=== PATIENT | female | born 1955 | race Caucasian/White ===

== ENCOUNTER 2024-12-08 10:28 | Outpatient (AMB) | payer MEDICARE, SELFPAY ==
--- NOTE | 2024-12-08 10:50 | A.OFFVIS_ITS ---
Vital Signs 12/08/24 10:51 Height 5 ft 3 in Weight 147 lb BMI 26.0 BP 118/72 Respiration 15 Pulse 70 Intake Visit Reasons: Gastroesophageal reflux disease (GERD) Allergies Sulfa (Sulfonamide Antibiotics) Allergy (Unknown, Verified 12/08/24 10:53) rash HPI HPI Gastroesophageal reflux disease (GERD): Details: 69-year-old female here for initial evaluation of GERD. She is referred from [facility] in [facility]. PMX Allergic rhinitis High cholesterol Depression GERD History of breast cancer Osteoarthritis of the knees Rosacea Raynaud's syndrome Rosacea PVD * SURGICAL HISTORY Colonoscopy-2014, 2008, 2020=polyps Breast biopsy Tonsillectomy Septoplasty Esophagogastroduodenoscopy -2011 * ALLERGIES Sulfa * [employer] LABS: None recent including [facility] website TODAY'S VISIT [facility] Medical History Hernia Hyperlipidemia Surgical History H/O esophagogastroduodenoscopy H/O nasal septoplasty Hx of tonsillectomy H/O breast biopsy H/O colonoscopy Family History (Updated 12/08/24 @ 11:01 by Eun Borges CMA) Mother Heart disease Diabetes Mother HTN (hypertension) Father Colon cancer Social History (Updated 12/08/24 @ 11:02 by Eun Borges CMA) Housing: House Alcohol intake: current Alcohol intake frequency: holidays/special occasions only Patient Tobacco Use Status: Never used Tobacco Current occupational status: retired Sexual orientation: Straight/Heterosexual Gender identity: Female Review of Systems Const Denies fatigue, Denies fever(s), Denies night sweats, Denies poor appetite and Reports weight loss (Intentional dieting) ENT Reports Normal hearing present, Denies dental pain, Denies dysphagia, Denies hearing loss, Denies mouth pain, Denies odynophagia, Denies throat swelling, Denies tongue swelling and Reports other (Dentition adequate) Card Reports chest pain Resp Reports no additional complaints GI Details: Reports abdominal pain, Denies melena, Denies bloating, Denies hematochezia, Denies constipation, Denies GI cramping, Denies dysphagia, Denies excessive flatus, Denies early satiety, Reports heartburn, Denies diarrhea, Denies nausea, Denies odynophagia, Denies vomiting and Denies hematemesis Skin/Breast Denies pruritus, Denies lesions, Denies rash and Denies jaundice Neuro Reports Normal hearing present and Denies Abnormal speech present Endo Denies fatigue Aller/Immun Denies throat swelling and Denies tongue swelling Physical Exam Vital Signs: Last Vital Signs Pulse 70 12/08/24 10:51 Resp 15 12/08/24 10:51 BP 118/72 12/08/24 10:51 BMI result Body Mass Index 26.0 Const General: cooperative, no acute distress, well developed and well groomed Nutritional Appearance: average body habitus and well nourished Orientation/consciousness: oriented to person, oriented to place and oriented to time Limitations: No language barrier HEENT Head: Yes normocephalic and Yes atraumatic Eyes General: appearance normal, both eyes and all related structures Pupils: Equal, round and reactive pupils present Neck Neck: Yes normal visual inspection and Yes no lymphadenopathy Thyroid: Thyroid normal Resp Effort & Inspection: normal respiratory effort and able to speak in complete sentences Auscultation: clear to auscultation bilaterally Cardio Rate: regular rate Rhythm: regular rhythm Heart sounds: Normal, physiologic split S2 sound present Peripheral pulses: radial pulses present and posterior tibial pulses present GI Inspection: No distended and No Abdominal panniculus present Palpation (GI): Soft to palpation, nontender, no guarding, not rigid and No hepatosplenomegaly present Percussion: Yes normal to percussion Auscultation: normal bowel sounds Rectal Exam - Female: deferred Skin General skin exam: no rashes or lesions noted, turgor normal, skin not dry, no jaundice, No spider nevi and no striae Rashes: no rashes Nails: normal Neuro General: oriented to person, oriented to place and oriented to time Cranial nerves: Yes Equal, round and reactive pupils present and Yes Normal hearing present Speech: No Abnormal speech present Extrem General: Yes normal to inspection, No clubbing, No cyanosis and No edema Psych Appearance: grossly normal and well kempt Mental Status: mental status grossly normal Speech and movement: Normal speech and movement present Affect: normal affect Attitude: cooperative Thought process: Normal thought process present and not confabulating Thought content: Normal thought content present Insight: Good insight present (Psych) Judgement: Good judgement present (Psych) Assessment & Plan Assessment & Plan (1) Pre-op examination: Code(s): Z01.818 - Encounter for other preprocedural examination Category: Medical (2) Abdominal pain: Code(s): R10.9 - Unspecified abdominal pain Category: Medical (3) Chest pain: Code(s): R07.9 - Chest pain, unspecified Category: Medical Plan - The patient is a 69-year-old female presenting with gastric abdominal burning and occasional burning in the chest consistent with heartburn. She has had prior colonoscopies and EGDs at . Her bowel movements are normal with neither constipation nor diarrhea. She denies any nausea or vomiting and her appetite is generally good. - these symptoms have persisted for four years with ineffective management; initial regimen of daily omeprazole was increased to twice daily for nocturnal pain but this never affected the pain 1 where the other. She ceased two months ago due to ineffectiveness. - Patient experiences reliable nocturnal waking due to burning sensations starting in the stomach and rising into the chest. - Upper endoscopy in 2020 demonstrated no significant findings; H. pylori test status is unclear, as I can not access the biopsy report or procedure report from [facility] - A weight loss regimen, including dietary modification, has helped with bloating but not any other GI symptoms. She has been following weight watchers and has lost about 26 lb to date. - Reports a familial history of abdominal cancer of unknown origin in her father. Apparently this was sent to a conference because this widespread abdominal cancer with so mysterious and they never were given a specific di agnosis. I suggest we start by getting some basic labs including a thyroid. She has not had many imaging studies but we will get an amylase and lipase to check her pancreatic function and see if if there is any preliminary evidence to suspect pancreatitis. I think an H pylori breath test is easy enough to obtain so we will get that today. I suggest we start by looking it is things that other providers have not looked at, so will get an ultrasound to see if there is any gallstones or gallbladder pathology along with a barium swallow to assess the significance of her reported hiatal hernia. I explained that is very difficult to assess the size of it and functional hernia with an endoscopy since your looking at it from the inside of the esophagus. For now, we are not going to start any new medications but I could consider Pepcid going forward for intermediate relief of the chest burning. Because females can also present with atypical cardiac presentation, I suggest we get an EKG while I do not think she has any acute coronary syndrome I think it would be a good idea to rule out any severe cardiac arrhythmias that could be contributing to her nocturnal abdominal pain. Going forward we may consider CAT scan particularly since her father had some sort of a undetermined abdominal cancer. This also would help us if we suspected anything like sclerosing mesenteritis or other unusual pathologies. Return office visit in 4 weeks Orders: Orders Complete Blood Count Auto Diff Today R10.9 - Unspecified abdominal pain TSH reflex Free T4 Today R10.9 - Unspecified abdominal pain Comprehensive Met. Panel Today R10.9 - Unspecified abdominal pain Amylase Today R10.9 - Unspecified abdominal pain Lipase Today R10.9 - Unspecified abdominal pain H Pylori Breath Test Today R10.9 - Unspecified abdominal pain FL barium swallow Today R10.9 - Unspecified abdominal pain US abdomen complete Today R10.9 - Unspecified abdominal pain ECG 12 lead EKG Today R07.9 - Chest pain, unspecified Coding Level of Care Code New Pt Level 3 (29811) Diagnoses Pre-op examination Z01.818 Abdominal pain R10.9 Chest pain R07.9
--- NOTE | 2024-12-08 10:50 | MHC.OFFVIS ---
Vital Signs 12/08/24 10:51 Height 5 ft 3 in Weight 147 lb BMI 26.0 BP 118/72 Respiration 15 Pulse 70 Intake Visit Reasons: Gastroesophageal reflux disease (GERD) Intake Note: c/o of stomach burning sensation Refrigeration Manager Required: No Information Interpreted: non-clinical & clinical Accompanied by: Self / Same As Patient Allergies Sulfa (Sulfonamide Antibiotics) Allergy (Unknown, Verified 12/08/24 10:53) rash Post menopausal: Yes PFSH Medical History Hernia Hyperlipidemia Surgical History H/O esophagogastroduodenoscopy H/O nasal septoplasty Hx of tonsillectomy H/O breast biopsy H/O colonoscopy Family History (Updated 12/08/24 @ 11:01 by Eun Borges CMA) Mother Heart disease Diabetes Mother HTN (hypertension) Father Colon cancer Social History (Updated 12/08/24 @ 11:02 by Eun Borges CMA) Housing: House Alcohol intake: current Alcohol intake frequency: holidays/special occasions only Patient Tobacco Use Status: Never used Tobacco Current occupational status: retired Sexual orientation: Straight/Heterosexual Gender identity: Female Coding
[2024-12-08 10:51] VITALS: BP 118/72; PULSE 70; RESP 15; BMI 26.0
--- OUTSIDE RECORDS SUMMARY | 2024-12-08 11:10 | XMS_ITS | Patient Health Record ---
[facility] Address [address] [place] [address] Care Team Providers Care Seed Production Field Supervisor Name Role Phone Crispin Cody MD Primary Care Provider Unavailab Og Wilson Unavailable [phone] Allergies Allergen (clinical drug ingredient) Drug/Non Drug Allergy documented on EMR Reaction Allergy Type Onset Date Status sulfa Unknown Drug Allergy Active Reason For Referral No Information Medications Medication SIG (Take, Route, Fr equency, Duration) Notes Start Date End Date Status Crestor 10 MG Orally; Duration: 30 day(s) Active Fexofenadine HCl 60 MG Orally; Duration: 30 day(s) Active Vitamin D 200 units Orally Active centrum silver Activ e Ritalin Orally Active CeleBREX Orally; Duration: 30 day(s) Active Viibryd Orally; Duration: 7 day(s) Active Problems Problem Type SNOMED Code ICD Code Onset Dates Problem Status W/U Status Risk Notes Problem Hammer toe (990626169) Hammer toe (735.4) Active confirmed Problem Pain in Limb (729.5) Active confirmed Plan Of Treatment No Information Insurance Providers Payer Name Payer Address Payer Phone Subscriber Number Group Number Insured Name Patient Relationship to Insured Coverage Start Date Coverage End Date [facility] All Others [address] [place] [address] [phone] [id number] Kaitlin Hodge Self - patient is the insured Medical (General) History Medical History History ICD Code Anxiety Back,Hip,and Knee pain Chicken pox Measles Mumps Hiatal hernia Cholesterol Surgical History Surgery Date(Month/Year) tonsillectomy
--- OUTSIDE RECORDS SUMMARY | 2024-12-08 11:10 | XMS_ITS | Clinical Summary ---
Author Organization [facility] Address [address] [place] [address] Care Team Providers Care Junk Removal Specialist Name Role Phone Unavailable Primary Care Provider Unavailabl e Allergies Active Allergy Reactions Criticality Noted Date Comments Environmental 06/15/2010 Sulfa Antibiotics 06/15/2010 Medications Fluvastatin Sodium (LESCOL XL) 80 MG OR TB24 1 TABLET DAILY Active Fexofenadine HCl 60 MG OR TABS 1 TABLET TWICE DAILY Active Sertraline HCl 50 MG OR TABS 1 TABLET DAILY Active Cholecalciferol (VITAMIN D) 400 UNIT OR CAPS 1 CAPSULE DAILY Active Viibryd 20 MG Tab Take 1 tablet by mouth 1 (one) time each day 11/18/2020 Active Rosuvastatin Calcium (CRESTOR) 10 MG tablet Take 10 mg by mouth 1 (one) time each day 10/05/2020 Active Omeprazole (PriLOSEC) [address] capsule Take 20 mg by mouth 09/18/2020 Active Active Problems No known active problems Social History Tobacco Use Types Packs/Day Years Used Date Smoking Tobacco: Never Smokeless Tobacco: Never Alcohol Use Standard Drinks/Week Comments Not Asked 0 (1 standard drink = 0.6 oz pur e alcohol) Intimate Partner Violence Answer Date R ecorded Fear of Current or Ex-Partner Not on file Emotionally Abused Not on file 12/13/2022 Physically Abused Not on file 12/13/2022 Sexually Abused Not on file 12/13/2022 Feel Safe at Home Not on file 12/13/2022 Comments Unknown Sex and Gender Information Value Date Recorded Sex Assigned at Not on file Legal Sex Female 1:32 AM EDT Gender Identity Not on file Sexual Orientation Not on file Plan of Treatment Upcoming Encounters Date Type Department Care Team (Late st Contact Info) Description 05/31/2025 1:50 PM EST Office Visit [facility] [address] [place] [phone] Josue Nye, OD [address] [place] [address] est pt exam nodm nocl aodv aoir Health Maintenance Due Date Last Done Comments Hepatitis C Screening 1955 DTaP/Tdap/Td (1 - Tdap) 1971 Mammogram/Breast Imaging 1993 Colon Cancer Screening 1998 Pneumococcal 50+ years (1 of 1 - PCV) 2003 Zoster (Shingrix) (1 of 2) 2003 Bone Density 2018 COVID-19 Vaccine ( season) 2023 10/15/2023, 12/29/2022, 07/18/2021, Additional history exists Influenza (#1) 2024 12/29/2022, 01/10, 02/10/2021, Additional history exists RSV (1 - 1-dose 75+ series) 02/12/2028 Eye/Retina Exam Discontinued 05/29/2024, 05/13, 05/29/2024, Additional history exists HPV Vaccine (No Doses Required) Completed Hep A Aged Out No longer eligi ble based on patient's age to complete this topic Hep B Aged Out No longer eligi ble based on patient's age to complete this topic Hib Aged Out No longer eligi ble based on patient's age to complete this topic Meningococcal ACWY Aged Out No longer eligible based on patient's age to complete this topic Pap Smear Discontinued Zoster (Zostavax) Discontinued Insurance [employer] FFS MEDICARE ADVANTAGE PPO PLAN [place]YEMED ACCESS
--- OUTSIDE RECORDS SUMMARY | 2024-12-08 11:10 | XMS_ITS | Encounter Summary ---
Author Organization [facility] Address [address] [place] [address] Care Team Providers Care City Planning Engineer Name Role Phone Unavailable Primary Care Provider Unavailabl e Encounter Details Date Type Department Care Team (Late st Contact Info) Description 06/15/2010 Orders Only [facility] [address] [place] [address] Wade Ragsdale OD Social History Tobacco Use Types Packs/Day Years Used Date Smoking Tobacco: Never Alcohol Use Standard Drinks/Week Comments Not Asked 0 (1 standard drink = 0.6 oz pur e alcohol) Comments Unknown Sex and Gender Information Value Date Recorded Sex Assigned at Not on file Legal Sex Female 1:32 AM EDT Gender Identity Not on file Sexual Orientation Not on file documented as of this encounter Plan of Treatment Upcoming Encounters Date Type Department Care Team (Late st Contact Info) Description 05/31/2025 1:50 PM EST Office Visit [facility] [address] [place] [phone] Josue Nye OD [address] [place] [address] est pt exam nodm nocl aodv aoir documented as of this encounter Visit Diagnoses Not on filedocumented in this encounter
== END 2024-12-08 11:59 | disposition home or self-care (01) ==
LOC: HO.HGI 10:29
PROVIDERS: PCP Hospitalist; Visit Provider Nurse Practitioner
DX: R10.9 Unspecified abdominal pain (principal); R07.9 Chest pain, unspecified
CPT/HCPCS: 99203

== ENCOUNTER → 2024-12-08 10:28 | Outpatient (REF) | payer MEDICARE, SELFPAY ==
--- NOTE | 2024-12-08 12:11 | ECG_ITS ---
Test Reason : r07.9 Blood Pressure : */* mmHG Vent. Rate : 55 BPM Atrial Rate : 55 BPM P-R Int : 198 ms QRS Dur : 88 ms QT Int : 416 ms P-R-T Axes : 50 16 45 degrees QTcB Int : 397 ms Sinus bradycardia Otherwise normal ECG No previous ECGs available Referred By: Lucrecia Hermosillo Electronically Signed By: REGINALD PEREA
[2024-12-08 12:19] LABS: MANUAL DIFF FLAG NO
--- OUTSIDE RECORDS SUMMARY | 2024-12-08 12:53 | XMS_ITS | Clinical Summary ---
Author Organization [facility] Address [address] [place] [address] Care Team Providers Care Stull Hewer Name Role Phone Monse Garay NP Primary Care Provider [phone] Allergies Active Allergy Reactions Criticality Noted Date Comments Hay Fever And Allergy Relief 011 Sulfa (Sulfonamide Antibiotics) 09/2010 Medications rosuvastatin (CRESTOR) 10 MG tablet TAKE 1 TABLET BY MOUTH EVERY DAY 3 9 Active VIIBRYD 40 mg tab TAKE 1 TABLET BY MOUTH EVERY DAY DIRECTED 1 9 Active vilazodone (Viibryd) 20 mg tab Take 1 tablet by mouth. 1 Active vilazodone 10 mg tab Take 20 mg by mouth. 2 Active rosuvastatin (CRESTOR) 10 MG tablet Take 1 tablet by mouth. 1 Active omeprazole (PriLOSEC) 20 MG capsule Take 20 mg by mouth. 1 Active omeprazole (PriLOSEC) 20 MG capsule TAKE 1 CAPSULE BY MOUTH EVERY DAY 2 Active fluvastatin XL (Lescol XL) 80 mg 24 hr tablet Take by mouth. Active cholecalciferol , vitamin D3, 10 mcg (400 unit) cap Take by mouth. Activ e cetirizine (ZyrTEC) 10 MG tablet Take 10 mg by mouth. 9 Active biotin 5 mg cap 0 Refills, Maintenance, 09/16/20 14:44:00 EDT, Partial fill upon patient request if the prescription is for a schedule II opioid drug. 1 Active cholecalciferol , vitamin D3, (Vitamin D3) 10 mcg (400 unit) cap Take by mouth. 2 Active uohkrxye-plv-LM -lycopen-lutein (Centrum Silver) 0.4 mg-300 mcg- 250 mcg tab Take by mouth. 4 Active rosuvastatin (CRESTOR) 20 MG tablet TAKE 1 TABLET BY MOUTH EVERY DAY 3 Active rosuvastatin (CRESTOR) 20 MG tablet Take 1 tablet (20 mg total) by mouth 3 Active azithromycin (ZITHROMAX) 500 MG tablet Take 2 tablets (1,000mg total) by mouth daily for 1 day. If symptoms not improved after 24 hours after first dose, take 1 tablet (500mg) by mouth daily for additional 2 days. 4 tablet 4 Active Immunizations Name Administration Dates Next Due Typhim Vi Single-dose Syringe 10/19/2023 Social History Tobacco Use Types Packs/Day Years Used Date Smoking Tobacco: Never Smokeless Tobacco: Never PHQ-2 Answer Date Recorded PHQ-2 Score Patient declined 10/19/2023 Comments No Sex and Gender Information Value Date Recorded Sex Assigned at Not on file Legal Sex Female 11:03 AM EST Gender Identity Not on file Sexual Orientation Not on file Last Filed Vital Signs Vital Sign Reading Time Taken Comments Blood Pressure 120/82 10/19/2023 10:10 AM EDT Pulse 83 04/15/2023 10:04 AM EST Temperature 36.4 C (97.5 F) 04/15/2023 10:04 AM EST Respiratory Rate 17 04/15/2023 10:04 AM EST Oxygen Saturation 98% 04/15/2023 10:04 AM EST Inhaled Oxygen Concentration - - Weight - - Height - - Body Mass Index - - Plan of Treatment Health Maintenance Due Date Last Done Comments Colorectal Cancer: COLONOSCO PY Screening every 10 yrs (or Modifier) 1953 Depression: Screening Annual ly using PHQ-2/9 in Adults 18 yrs or above (or HM Modifier)([facility]) 1971 Hepatitis C Virus Infection in Adolescents and Adults: Screening (or Modifier) ([facility]) 1971 YANETH Screening: Once using ST OP-BANG Questionnaire for Adults with Conditions or high BMI([facility]) 1971 SDOH Screening Reminder: Shayy gambino for all adults ([facility]) 1971 Tobacco Smoking Cessation: i n Adults excluding Women: Behavioral and Pharmacotherapy Interventions ([facility]) 1971 DTaP/Tdap/Td Vaccines ([facility]) (1 - Tdap) 02/12/1972 Colorectal Cancer Screening 45 -75 Yrs (or HM Modifier) 1998 Colorectal Cancer: FLEXIBLE SIGMOIDOSCOPY Screening every 5 yrs 1998 Colorectal Cancer: Fecal Immunochemical Test (FIT) Annually [facility] 1998 Colorectal Cancer: High-sens itivity gFOBT Screening Annually [facility] 1998 Colorectal Cancer: Stool Col oguard Screening every 3 yrs 1998 Colorectal Cancer:CT Colonog florentino Screening every 5 yrs 1998 Breast Cancer: Screening Shayy ually age 50-74 yrs (or HM Modifier)([facility]) 2003 Osteoporosis Screening to Pr event Fractures: Women aged 65 years+ ([facility]) 2018 Flu Vaccination: Ages 65+: Y early High Dose Recommended (or Modifier)([facility]) 11/10/2024 Pneumococcal Vaccination Scr eening: Patients 50+ yrs of age ([facility]) Completed 01/06/2020, 10/31/2018 Zoster/Shingles Vaccine Seri es Screening: Adults aged 18+ yrs (or HM Modifiers)([facility]) Completed 11/12/2020, 08/26/2020, 07/09/2014 RSV Vaccines Completed 04/08/2023 Medical Devices Not on file Care Teams Stull Hewer Relationship Specialty Start Date End Date Monse Garay NP [address] [place] [id number] PCP - General Family Medicine 10/19/23
[2024-12-08 14:24] LABS: Hematocrit 46.6 % (37.0-47.0); Hemoglobin 15.2 g/dl (12.0-16.0); Imm Gran Abs Auto 0.04 X10*3/uL (0.00-0.03); Imm Gran Pct Auto 0.7 % (0.0-0.4); Lymphocytes Absolute Auto 1.7 X10*3/uL (1.2-4.9); Mean Corpuscular HGB Conc 32.6 g/dl (31.0-35.0); Mean Corpuscular Hemoglobin 28.7 pg (27.0-33.0); Mean Corpuscular Volume 87.9 fL (80.0-98.0); NRBC Abs Auto 0.000 X10*3/uL (0.0-0.012); NRBC Pct Auto 0.0 /100WBC (0.0-0.2); Platelet Count 256 X10*3/uL (160-400); Red Blood Count 5.30 X10*6/uL (4.20-5.50); White Blood Count 5.9 X10*3/uL (4.8-10.8)
[2024-12-08 15:13] LABS: Alanine Aminotransferase 45 U/L (0-31); Albumin Level 4.8 g/dL (3.5-5.0); Alkaline Phosphatase 76 U/L (39-117); Amylase 72 U/L (28-100); Anion Gap 11 (12-20); Aspartate Amino Transferase 27 U/L (5-31); Blood Urea Nitrogen 13 mg/dL (9-16); Calcium 9.3 mg/dL (8.4-10.2); Carbon Dioxide 27 mmol/L (22-29); Chloride 108 mmol/L (96-108); Estimated Glomerular Filt Rate > 60; Lipase 36 U/L (8-78); Potassium 4.1 mmol/L (3.3-5.1); Sodium 142 mmol/L (135-145); Total Protein 7.1 g/dL (6.5-8.0)
== END ==
LOC: HO.CARD 10:28
PROVIDERS: PCP Hospitalist; Visit Provider Nurse Practitioner
DX: R10.9 Unspecified abdominal pain (principal); R07.9 Chest pain, unspecified; Z01.818 Encounter for other preprocedural examination
CPT/HCPCS: 36415; 80053; 82150; 83690; 84443; 85025; 93005; 99202

== ENCOUNTER → 2024-12-08 12:11 | Outpatient (BNV) | payer MEDICARE, SELFPAY | PROVIDERS: PCP Hospitalist; Visit Provider Internal Medicine | DX: R00.1 Bradycardia, unspecified (principal) | CPT/HCPCS: 93010 ==

== ENCOUNTER 2024-12-08 18:26 | Outpatient (REF) | payer MEDICARE, SELFPAY | END 2024-12-08 18:27 | disposition home or self-care (01) | LOC: HO.LNP 18:26 | PROVIDERS: Visit Provider Nurse Practitioner | DX: R10.9 Unspecified abdominal pain (principal) | CPT/HCPCS: 83013 ==

== ENCOUNTER 2025-01-09 14:19 | Outpatient (AMB) | payer MEDICARE, SELFPAY ==
[2025-01-09 14:22] VITALS: BP 98/69; PULSE 71; BMI 26.6
--- NOTE | 2025-01-09 14:22 | MHC.OFFVIS ---
Vital Signs 01/09/25 14:22 Height 5 ft 3 in Weight 150 lb BMI 26.6 BP 98/69 Blood Pressure Location Lt brachial Position Sitting Pulse 71 Intake Visit Reasons: 4 weeks CP, abd pain Intake Note: Kaitlin presents to in office follow up of abd pain. CC: Patient states that her stomach has calmed down but she does have some acid reflux periodically. Chicken And Fish Cleaner Required: No Accompanied by: Self / Same As Patient Allergies Sulfa (Sulfonamide Antibiotics) Allergy (Unknown, Verified 01/09/25 14:40) rash HPI HPI 4 weeks CP, abd pain: Details: Assessment & Plan (1) Pre-op examination: Code(s): Z01.818 - Encounter for other preprocedural examination Category: Medical (2) Abdominal pain: Code(s): R10.9 - Unspecified abdominal pain Category: Medical (3) Chest pain: Code(s): R07.9 - Chest pain, unspecified Category: Medical Plan - The patient is a 69-year-old female presenting with gastric abdominal burning and occasional burning in the chest consistent with heartburn. She has had prior colonoscopies and EGDs at [facility]. Her bowel movements are normal with neither constipation nor diarrhea. She denies any nausea or vomiting and her appetite is generally good. - these symptoms have persisted for four years with ineffective management; initial regimen of daily omeprazole was increased to twice daily for nocturnal pain but this never affected the pain 1 where the other. She ceased two months ago due to ineffectiveness. - Patient experiences reliable nocturnal waking due to burning sensations starting in the stomach and rising into the chest. - Upper endoscopy in 2020 demonstrated no significant findings; H. pylori test status is unclear, as I can not access the biopsy report or procedure report from [facility] - A weight loss regimen, including dietary modification, has helped with bloating but not any other GI symptoms. She has been following weight watchers and has lost about 26 lb to date. - Reports a familial history of abdominal cancer of unknown origin in her father. Apparently this was sent to a conference because this widespread abdominal cancer with so mysterious and they never were given a specific diagnosis. I suggest we start by getting some basic labs including a thyroid. She has not had many imaging studies but we will get an amylase and lipase to check her pancreatic function and see if if there is any preliminary evidence to suspect pancreatitis. I think an H pylori breath test is easy enough to obtain so we will get that today. I suggest we start by looking it is things that other providers have not looked at, so will get an ultrasound to see if there is any gallstones or gallbladder pathology along with a barium swallow to assess the significance of her reported hiatal hernia. I explained that is very difficult to assess the size of it and functional hernia with an endoscopy since your looking at it from the inside of the esophagus. For now, we are not going to start any new medications but I could consider Pepcid going forward for intermediate relief of the chest burning. Because females can also present with atypical cardiac presentation, I suggest we get an EKG while I do not think she has any acute coronary syndrome I think it would be a good idea to rule out any severe cardiac arrhythmias that could be contributing to her nocturnal abdominal pain. Going forward we may consider CAT scan particularly since her father had some sort of a undetermined abdominal cancer. This also would help us if we suspected anything like sclerosing mesenteritis or other unusual pathologies. Return office visit in 4 weeks Orders: Orders Complete Blood Count Auto Diff Today R10.9 - Unspecified abdominal pain TSH reflex Free T4 Today R10.9 - Unspecified abdominal pain Comprehensive Met. Panel Today R10.9 - Unspecified abdominal pain Amylase Today R10.9 - Unspecified abdominal pain Lipase Today R10.9 - Unspecified abdominal pain H Pylori Breath Test Today R10.9 - Unspecified abdominal pain FL barium swallow Today R10.9 - Unspecified abdominal pain US abdomen complete Today R10.9 - Unspecified abdominal pain ECG 12 lead EKG Today R07.9 - Chest pain, unspecified Assessment & Plan (1) Pre-op examination: Code(s): Z01.818 - Encounter for other preprocedural examination Category: Medical (2) Abdominal pain: Code(s): R10.9 - Unspecified abdominal pain Category: Medical (3) Chest pain: Code(s): R07.9 - Chest pain, unspecified Category: Medical Plan - The patient is a 69-year-old female presenting with gastric abdominal burning and occasional burning in the chest consistent with heartburn. She has had prior colonoscopies and EGDs at [facility]. Her bowel movements are normal with neither constipation nor diarrhea. She denies any nausea or vomiting and her appetite is generally good. - these symptoms have persisted for four years with ineffective management; initial regimen of daily omeprazole was increased to twice daily for nocturnal pain but this never affected the pain 1 where the other. She ceased two months ago due to ineffectiveness. - Patient experiences reliable nocturnal waking due to burning sensations starting in the stomach and rising into the chest. - Upper endoscopy in 2020 demonstrated no significant findings; H. pylori test status is unclear, as I can not access the biopsy report or procedure report from [facility] - A weight loss regimen, including dietary modification, has helped with bloating but not any other GI symptoms. She has been following weight watchers and has lost about 26 lb to date. - Reports a familial history of abdominal cancer of unknown origin in her father. Apparently this was sent to a conference because this widespread abdominal cancer with so mysterious and they never were given a specific diagnosis. I suggest we start by getting some basic labs including a thyroid. She has not had many imaging studies but we will get an amylase and lipase to check her pancreatic function and see if if there is any preliminary evidence to suspect pancreatitis. I think an H pylori breath test is easy enough to obtain so we will get that today. I suggest we start by looking it is things that other providers have not looked at, so will get an ultrasound to see if there is any gallstones or gallbladder pathology along with a barium swallow to assess the significance of her reported hiatal hernia. I explained that is very difficult to assess the size of it and functional hernia with an endoscopy since your looking at it from the inside of the esophagus. For now, we are not going to start any new medications but I could consider Pepcid going forward for intermediate relief of the chest burning. Because females can also present with atypical cardiac presentation, I suggest we get an EKG while I do not think she has any acute coronary syndrome I think it would be a good idea to rule out any severe cardiac arrhythmias that could be contributing to her nocturnal abdominal pain. Going forward we may consider CAT scan particularly since her father had some sort of a undetermined abdominal cancer. This also would help us if we suspected anything like sclerosing mesenteritis or other unusual pathologies. Return office visit in 4 weeks Orders: Orders Complete Blood Count Auto Diff Today R10.9 - Unspecified abdominal pain TSH reflex Free T4 Today R10.9 - Unspecified abdominal pain Comprehensive Met. Panel Today R10.9 - Unspecified abdominal pain Amylase Today R10.9 - Unspecified abdominal pain Lipase Today R10.9 - Unspecified abdominal pain H Pylori Breath Test Today R10.9 - Unspecified abdominal pain FL barium swallow Today R10.9 - Unspecified abdominal pain US abdomen complete Today R10.9 - Unspecified abdominal pain ECG 12 lead EKG Today R07.9 - Chest pain, unspecified LABS: Laboratory Tests 12/08/24 12/08/24 11:53 12:18 WBC 5.9 Hgb 15.2 Hct 46.6 Plt Count 256 Estimated GFR > 60 Total Bilirubin 0.4 AST 27 ALT 45 H Alkaline Phosphatase 76 Amylase 72 Lipase 36 TSH 1.15 H. pylori Breath Test Negative EKG Vent. Rate : 55 BPM Atrial Rate : 55 BPM P-R Int : 198 ms QRS Dur : 88 ms QT Int : 416 ms P-R-T Axes : 50 16 45 degrees QTcB Int : 397 ms Sinus bradycardia Otherwise normal ECG ULTRASOUND OF THE ABDOMEN BARIUM SWALLOW 04/16/2025 TODAY'S VISIT [facility] Medical History Hernia Hyperlipidemia Surgical History H/O esophagogastroduodenoscopy H/O nasal septoplasty Hx of tonsillectomy H/O breast biopsy H/O colonoscopy Family History Mother Heart disease Diabetes Mother HTN (hypertension) Father Colon cancer Social History Housing: House Alcohol intake: current Alcohol intake frequency: holidays/special occasions only Patient Tobacco Use Status: Never used Tobacco Current occupational status: retired Sexual orientation: Straight/Heterosexual Gender identity: Female Review of Systems Const Denies fatigue, Denies fever(s), Denies night sweats, Denies poor appetite and Denies weight loss Eyes Details: glasses Reports requires corrective lenses ENT Reports Normal hearing present, Denies dental pain, Denies dysphagia, Denies hearing loss, Denies mouth pain, Denies odynophagia, Denies throat swelling, Denies tongue swelling and Reports other (Dentition adequate) Card Reports no additional complaints Resp Reports no additional complaints GI Details: Denies abdominal pain, Denies melena, Denies bloating, Denies hematochezia, Denies constipation, Denies GI cramping, Denies dysphagia, Denies excessive flatus, Denies early satiety, Reports dyspepsia, Denies heartburn, Denies diarrhea, Denies nausea, Denies odynophagia, Denies vomiting and Denies hematemesis Skin/Breast Denies pruritus, Denies lesions, Denies rash and Denies jaundice Neuro Reports Normal hearing present and Denies Abnormal speech present Endo Denies fatigue Aller/Immun Denies throat swelling and Denies tongue swelling Physical Exam Vital Signs: Last Vital Signs Pulse 71 01/09/25 14:22 BP 98/69 01/09/25 14:22 BMI result Body Mass Index 26.6 Const General: cooperative, no acute distress, well developed and well groomed Nutritional Appearance: average body habitus and well nourished Orientation/consciousness: oriented to person, oriented to place and oriented to time Limitations: No language barrier HEENT Head: Yes normocephalic and Yes atraumatic Eyes General: appearance normal, both eyes and all related structures Pupils: Equal, round and reactive pupils present Neck Neck: Yes normal visual inspection and Yes no lymphadenopathy Thyroid: Thyroid normal Resp Effort & Inspection: normal respiratory effort and able to speak in complete sentences Auscultation: clear to auscultation bilaterally Cardio Rate: regular rate Rhythm: regular rhythm Heart sounds: Normal, physiologic split S2 sound present Peripheral pulses: radial pulses present and posterior tibial pulses present GI Inspection: No distended and No Abdominal panniculus present Palpation (GI): Soft to palpation, nontender, no guarding, not rigid, No hepatosplenomegaly present and Hepatosplenomegaly present Percussion: Yes normal to percussion Auscultation: normal bowel sounds Rectal Exam - Female: deferred Skin General skin exam: no rashes or lesions noted, turgor normal, skin not dry, no jaundice, No spider nevi and no striae Rashes: no rashes Nails: normal Neuro General: oriented to person, oriented to place and oriented to time Cranial nerves: Yes Equal, round and reactive pupils present and Yes Normal hearing present Speech: No Abnormal speech present Extrem General: Yes normal to inspection, No clubbing, No cyanosis and No edema Psych Appearance: grossly normal and well kempt Mental Status: mental status grossly normal Speech and movement: Normal speech and movement present Affect: normal affect Attitude: cooperative Thought process: Normal thought process present and not confabulating Thought content: Normal thought content present Insight: Good insight present (Psych) Judgement: Good judgement present (Psych) Results Reviewed Results Reviewed: Laboratory Tests 12/08/24 12/08/24 11:53 12:18 WBC 5.9 Hgb 15.2 Hct 46.6 Plt Count 256 Estimated GFR > 60 Total Bilirubin 0.4 AST 27 ALT 45 H Alkaline Phosphatase 76 Amylase 72 Lipase 36 TSH 1.15 H. pylori Breath Test Negative EKG Vent. Rate : 55 BPM Atrial Rate : 55 BPM P-R Int : 198 ms QRS Dur : 88 ms QT Int : 416 ms P-R-T Axes : 50 16 45 degrees QTcB Int : 397 ms Sinus bradycardia Otherwise normal ECG Assessment & Plan Assessment & Plan (1) GERD (gastroesophageal reflux disease): Code(s): K21.9 - Gastro-esophageal reflux disease without esophagitis Category: Medical (2) Abdominal pain: Code(s): R10.9 - Unspecified abdominal pain Category: Medical (3) Chest pain: Code(s): R07.9 - Chest pain, unspecified Category: Medical Plan She stopped her omeprazole ?cold turkey? and had dyspepsia for couple of weeks but then this seems to have resolved. Since then she also seems to have had an improvement in her symptoms of burning and chest pain. Obviously we are going to keep her off of the omeprazole. We go over all of the lab work and it is basically benign except for a mild transaminase elevation of her ALT. EKG which was obtained to rule out atypical cardiac pain showed sinus bradycardia. H pylori breath test was negative. I am glad she is feeling better but I can not say were any closer to a definitive diagnosis. However we still have the barium swallow in the ultrasound upcoming. I will see her again after the barium swallow in April. ULTRASOUND OF THE ABDOMEN BARIUM SWALLOW 04/16/2025 Coding Level of Care Code Est Pt Level 3 (99977) Diagnoses GERD (gastroesophageal reflux disease) K21.9 Abdominal pain R10.9 Chest pain R07.9
--- OUTSIDE RECORDS SUMMARY | 2025-01-09 15:43 | XMS_ITS | Patient Health Record ---
[facility] Address [address] [place] [address] Care Team Providers Care Electronics Warfare Technician Name Role Phone Crispin Cody MD Primary Care Provider Unavailab Og Wilson Unavailable [phone] Allergies Allergen (clinical drug ingredient) Drug/Non Drug [...] W/U Status Risk Notes Problem Hammer toe ([id number]) Hammer toe (735.4) Active confirmed Problem Pain in limb (93856788) Pain in Limb (729.5) Active confirmed Plan Of Treatment No Information Insurance Providers Payer Name Payer Address Payer Phone Subscriber Number Group Number Insured Name Patient Relationship to Insured Coverage Start Date Coverage End Date [facility] [employer] [address] [place] [address] [phone] [id number] Kaitlin Hodge Self - patient is the insured Medical (General) History Medical History History ICD Code Anxiety Back,Hip,and Knee pain Chicken pox Measles Mumps Hiatal hernia Cholesterol Surgical History Surgery Date(Month/Year) tonsillectomy
--- OUTSIDE RECORDS SUMMARY | 2025-01-09 15:43 | XMS_ITS | Encounter Summary ---
Author Organization [facility] Address [address] [place] [address] Care Team Providers Care Rubber Vulcanizing Machine Operator Name Role Phone Unavailable Primary Care Provider Unavailabl e Encounter Details Date Type Department Care Team (Late st Contact Info) Description 06/15/2010 Orders Only [facility] [address] [place] [address] Wade Ragsdale OD Social History Tobacco Use [...] Description 05/31/2025 1:50 PM EST Office Visit [facility] [address] [place] [phone] Josue Nye OD [address] [place] [address] est pt exam nodm nocl aodv aoir documented as of this encounter Visit Diagnoses Not on filedocumented in this encounter
--- OUTSIDE RECORDS SUMMARY | 2025-01-09 15:43 | XMS_ITS | Clinical Summary ---
Author Organization [facility] Address [address] [place] [address] Care Team Providers Care Dungeon Master Name Role Phone Unavailable Primary Care Provider [...] PM EST Office Visit [facility] [address] [place] [phone] Josue Nye, OD [address] [place] [address] est pt exam nodm nocl aodv aoir Health Maintenance Due Date Last Done Comments Hepatitis C Screening 1953 DTaP/Tdap/Td (1 - Tdap) 1971 Mammogram/Breast Imaging 1993 Colon Cancer Screening 1998 Pneumococcal 50+ years (1 of 1 - PCV) 2003 Zoster (Shingrix) (1 of 2) 2003 Bone Density 2018 COVID-19 Vaccine ( season) 2024 10/15/2023, 12/29/2022, 07/18/2021, Additional history exists Influenza [...]
== END 2025-01-09 15:05 | disposition home or self-care (01) ==
LOC: HO.HGI 14:20
PROVIDERS: PCP Hospitalist; Visit Provider Nurse Practitioner
DX: K21.9 Gastro-esophageal reflux disease without esophagitis (principal); R10.9 Unspecified abdominal pain; R07.9 Chest pain, unspecified
CPT/HCPCS: 99213

== ENCOUNTER → 2025-01-09 14:19 | Outpatient (BNVA) | payer MEDICARE, SELFPAY | PROVIDERS: PCP Hospitalist; Visit Provider Nurse Practitioner | DX: K21.9 Gastro-esophageal reflux disease without esophagitis (principal); R10.9 Unspecified abdominal pain; R07.9 Chest pain, unspecified | CPT/HCPCS: 99212 ==

== ENCOUNTER 2025-03-06 07:51 | Outpatient (REF) | payer MEDICARE, SELFPAY ==
--- NOTE | ~2025-03-06 | US_ITS ---
CLINICAL HISTORY: R10.9 - Unspecified abdominal pain US abdomen complete Comparison: None provided Findings: The visualized pancreas is normal, tail and uncinate process are obscured by bowel gas. The visualized aorta and inferior vena cava are normal caliber. The liver is normal in size, right lobe length is 14.3 cm. Liver parenchyma is normal in echogenicity. Several cysts are visualized, the dominant cyst in the left lobe is simple and measures 5.2 x 2.8 x 4.1 cm, dominant right hepatic cyst is complex, lobulated with thin and mildly thick septa, no intralesional vascular flow, 3.8 x 3.4 x 3.3 cm. No intrahepatic bile duct dilatation. The common duct is 5 mm in diameter. The gallbladder is normal. Negative sonographic Smith sign. The main portal vein is patent with antegrade flow. The right kidney is normal, 12.2 cm in length. The left kidney is normal, 12.5 cm in length. The spleen is normal, 10.1 cm in length. No free fluid in the abdomen. Impression: 1. No acute finding. 2. Hepatic cysts, the dominant right hepatic cyst is complex, recommend comparison with previous exam if available or further evaluation by outpatient liver MRI. This document has been electronically signed by: Vanessa Kovacs MD on 03/06/2025 16:19:23
--- OUTSIDE RECORDS SUMMARY | 2025-03-06 07:56 | XMS_ITS | Clinical Summary ---
Author Organization [facility] Address [address] [place] [address] Care Team Providers Care Supervisor Alteration Workroom Name Role Phone Monse Garay NP Primary Care Provider [phone] Allergies Active Allergy Reactions Criticality Noted Date [...] unit) cap Take by mouth. 2 Active huhjcadz-gat-IL -lycopen-lutein (Centrum Silver) 0.4 mg-300 mcg- 250 [...] 2 days. 4 tablet 4 Active Immunizations Immunization Administration Dates Next Due Typhim Vi Single-dose [...] Adults 18 yrs or above (or HM Modifier)([facility]) 1971 Hepatitis C Virus Infection in Adolescents and Adults: Screening (or Modifier) ([facility]) 1971 YANETH Screening: Once using ST OP-BANG Questionnaire for Adults with Conditions or high BMI([facility]) 1971 SDOH Screening Reminder: Shayy gambino for all adults ([facility]) 1971 Tobacco Smoking Cessation: i n Adults excluding Women: Behavioral and Pharmacotherapy Interventions ([facility]) 1971 DTaP/Tdap/Td Vaccines ([facility]) (1 - Tdap) 02/12/1972 Colorectal Cancer Screening 45 -75 Yrs (or HM Modifier) 1998 Colorectal Cancer: FLEXIBLE SIGMOIDOSCOPY Screening every 5 yrs 1998 Colorectal Cancer: Fecal Immunochemical Test (FIT) Annually [facility] 1998 Colorectal Cancer: High-sens itivity gFOBT Screening Annually [facility] 1998 Colorectal Cancer: Stool Col oguard Screening every 3 yrs 1998 Colorectal Cancer:CT Colonog florentino Screening every 5 yrs 1998 Breast Cancer: Screening Shayy ually age 50-74 yrs (or HM Modifier)([facility]) 2003 Osteoporosis Screening to Pr event Fractures: Women aged 65 years+ ([facility]) 2018 Flu Vaccination: Ages 65+: Y early High Dose Recommended (or Modifier)([facility]) 11/10/2024 COVID-19 Vaccine Screening: Initial Series and Booster Status ([facility]) ( season) 2024 12/29/2022, 07/18/2021, 01/22/2021, Additional history exists Pneumococcal Vaccination Scr eening: Patients 50+ yrs of age ([facility]) Completed 01/06/2020, 10/31/2018 Zoster/Shingles Vaccine Seri es Screening: Adults aged 18+ yrs (or HM Modifiers)([facility]) Completed 11/12/2020, 08/26/2020, 07/09/2014 RSV Vaccines Completed 04/08/2023 Medical Devices Not on file Care Teams Supervisor Alteration Workroom Relationship Specialty Start Date End Date Monse Garay NP [address] [place] [address] PCP - General Family Medicine 10/19/23
--- OUTSIDE RECORDS SUMMARY | 2025-03-06 07:56 | XMS_ITS | Encounter Summary ---
Author Organization [facility] Address [address] [place] [address] Care Team Providers Care Contaminated Land Consultant Name Role Phone Unavailable Primary Care Provider Unavailabl e Encounter Details Date Type Department Care Team (Late st Contact Info) Description 06/15/2010 Orders Only [facility] [address] [place] [phone] Wade Ragsdale OD Social History Tobacco Use [...] Description 05/31/2025 1:50 PM EST Office Visit [facility] [address] [place] [phone] Josue Nye OD [address] [place] [address] est pt exam nodm nocl aodv aoir documented as of this encounter Visit Diagnoses Not on filedocumented in this encounter
--- OUTSIDE RECORDS SUMMARY | 2025-03-06 07:56 | XMS_ITS | Clinical Summary ---
Author Organization [facility] Address [address] [place] [address] Care Team Providers Care Turntable Man Name Role Phone Unavailable Primary Care Provider [...] PM EST Office Visit [facility] [address] [place] [phone] Josue Nye, OD [address] [place] [address] est pt exam nodm nocl aodv aoir [...]
== END 2025-03-06 07:52 | disposition home or self-care (01) ==
LOC: HO.US 07:51
PROVIDERS: PCP Nurse Practitioner Family; Visit Provider Nurse Practitioner
DX: R10.9 Unspecified abdominal pain (principal)
CPT/HCPCS: 76700

== ENCOUNTER → 2025-03-06 07:56 | Outpatient (BNV) | payer MEDICARE, SELFPAY | PROVIDERS: PCP Nurse Practitioner Family; Visit Provider Radiology Diagnostic Radiology | DX: K76.89 Other specified diseases of liver (principal) | CPT/HCPCS: 76700 ==